=== PATIENT | female | born 1975 | race Caucasian/White ===

== ENCOUNTER 2018-08-17 09:11 | Emergency (ER) | payer BC ==
[~2018-08-17] VITALS: Ht 182.9 cm; Wt 68.0 kg
[2018-08-17] MEDS ORDERED: WELLBUTRIN SR200 MG ORAL (09:23)
--- NOTE | 2018-08-17 09:35 | Emergency Room Report ---
History of Present Illness General Chief Complaint: Earache Source: Patient Present Illness HPI Patient presents with right ear pain. For 2 days she's had an upper respiratory illness with cough and sore throat in addition to that. She has some wheezing. She's used an inhaler in the past but not at this time. She tried taking NyQuil few nights ago. It hadn't helped. The pain is sharp in the right ear and worse when she moves her head upwards. There is no drainage or change in the hearing. 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 No dizziness. No nausea, vomiting, diarrhea, dysuria. Her last period was last week and normal for her. 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 Last Menstrual Period: 07/2018 Now: No Reviewed Nursing Documentation: PMH: Agreed; PSxH: Agreed Nursing Documentation-PMH Past Medical History: No History, Except For Review of Systems All Other Systems: negative except mentioned in HPI Physical Exam Vital Signs Date Time Temp Pulse Resp B/P (MAP) Pulse Ox O2 Delivery O2 Flow Rate FiO2 08/17/18 09:19 98.1 71 18 105/69 98 Room Air Sp02 EP Interpretation: reviewed, normal General Appearance: well appearing, no apparent distress, GCS 15 Head: normocephalic, atraumatic Eyes: bilateral eye normal inspection, bilateral eye PERRL, bilateral eye EOMI ENT: moist mucus membranes, pharyngeal erythema, other - Right TM with redness and slight bulging left is normal Neck: full range of motion, supple Respiratory: chest non-tender, lungs clear, normal breath sounds, no respiratory distress, speaking full sentences Cardiovascular #1: regular rate, rhythm Cardiovascular #2: 2+ radial (L) Gastrointestinal: normal inspection Musculoskeletal: digits/nails normal, gait/station normal, normal range of motion Neurologic: alert, oriented x3, normal gait, grossly normal Psychiatric: mood/affect normal Skin: no rash Medical Decision Making Diagnostic Impression: Primary Impression: Right otitis media Qualified Codes: H66.001 - Acute suppurative otitis media without spontaneous rupture of ear drum, right ear Additional Impression: Bronchospasm ER Course Patient presents with upper respiratory illness and right ear pain. Differential includes otitis media, otitis externa, viral syndrome with pharyngitis and bronchitis and bronchospasm amongst others. Based on exam she has otitis media and antibiotic's are indicated. In addition she'll be prescribed an antihistamine and at her request, an inhaler. Her lungs are clear at this time. Amoxicillin is begun here. In addition she'll be given a dose of Tylenol. Patient stable for outpatient observation and treatment. Last Vital Signs Date Time Temp Pulse Resp B/P (MAP) Pulse Ox O2 Delivery O2 Flow Rate FiO2 08/17/18 09:58 98.1 08/17/18 09:55 72 18 105/69 98 Room Air Status: improved Disposition: HOME, SELF-CARE Condition: Improved Scripts Albuterol Sulfate* (ALBUTEROL SULFATE MDI*) 8.5 Gm Hfa.aer.ad 2 PUFF INH Q6H, #1 EA 0 Refills Prov: Caesar Laws MD 08/17/18 Amoxicillin* (AMOXIL*) 500 Mg Capsule 500 MG ORAL THREE TIMES A DAY, #20 CAP Prov: Caesar Laws MD 08/17/18 Chlorpheniramine Maleate (CHLOR-TRIMETON) 4 Mg Tablet 4 MG PO Q6HR PRN for congestion, #10 TAB Prov: Caesar Laws MD 08/17/18 Caesar Laws MD Aug 17, 2018 09:35
[2018-08-17] MEDS ORDERED: AMOXICILLIN500 MG ORAL (09:38)
[2018-08-17] MEDS ORDERED: CHLOR-TRIMETON4 MG PO (09:38)
[2018-08-17] MEDS ORDERED: ALBUTEROL SULF8.5 GM INH (09:41)
[2018-08-17 09:42] VITALS: BP 105/69
[2018-08-17 09:55] VITALS: BP 105/69
--- NOTE | 2018-08-17 09:57 | NUR ---
ER DISCHARGE NOTE: Patient is cleared to be discharged per ERMD, pt is aox4, on room air, with stable vital signs. pt was given dc and prescription instructions, pt was able to verbalize understanding, pt is able to ambulate with steady gait. pt took all belongings.
== END 2018-08-17 10:00 | disposition home or self-care (01) ==
LOC: EMR 09:39
DX: H66.001 Acute suppurative otitis media without spontaneous rupture of ear drum, right ear (principal); J98.01 Acute bronchospasm
CPT/HCPCS: 99282